=== PATIENT | male | born 1955 | race Caucasian/White ===

== ENCOUNTER 2019-07-16 07:17 | Outpatient (CLI) | payer OTHER ==
[2019-07-16 10:20] LABS: BASOPHILS % (AUTO) 0.7 %; EOSINOPHILS # (AUTO) 0.2 10^3/uL (0.0-0.7); EOSINOPHILS % (AUTO) 3.4 %; HGB - HEMOGLOBIN 15.9 g/dL (14.0-18.0); LYMPHOCYTES # (AUTO) 1.3 10^3/uL (1.5-3.5); LYMPHOCYTES % (AUTO) 22.7 %; MEAN CORPUSCULAR HGB CONC 32.4 g/dL (32.0-36.0); MEAN CORPUSCULAR VOLUME 86.4 fL (80.0-94.0); MEAN PLATELET VOLUME 10.3 fL (7.4-11.4); MONOCYTES # (AUTO) 0.5 10^3/uL (0.0-1.0); MONOCYTES % (AUTO) 8.2 %; NEUTROPHILS # (AUTO) 3.7 10^3/uL (1.5-6.6); PLT - PLATELET COUNT 238 10^3/uL (130-450); RED BLOOD COUNT 5.68 10^6/uL (4.70-6.10); RED CELL DISTRIBUTION WIDTH 14.1 % (12.0-15.0); WHITE BLOOD COUNT 5.9 x10^3/uL (4.8-10.8)
== END 2019-07-16 07:18 | disposition home or self-care (01) ==
LOC: LAB.S 07:17
PROVIDERS: ATTEND Naprapath
DX: Z13.29 Encounter for screening for other suspected endocrine disorder (principal); Z13.0 Encounter for screening for diseases of the blood and blood-forming organs and certain disorders involving the immune mechanism
CPT/HCPCS: 36415; 81599; 82672; 84402; 84403; 85025

== ENCOUNTER 2021-03-23 08:36 | Outpatient (CLI) | payer MEDICARE ==
[2021-03-23 15:05] LABS: BASOPHILS % (AUTO) 0.7 %; EOSINOPHILS # (AUTO) 0.2 10^3/uL (0.0-0.7); HCT - HEMATOCRIT 51.8 % (42.0-52.0); LYMPHOCYTES # (AUTO) 1.2 10^3/uL (1.5-3.5); LYMPHOCYTES % (AUTO) 20.5 %; MEAN CORPUSCULAR HEMOGLOBIN 28.4 pg (27.0-31.0); MEAN CORPUSCULAR HGB CONC 32.8 g/dL (32.0-36.0); MEAN CORPUSCULAR VOLUME 86.6 fL (80.0-94.0); MEAN PLATELET VOLUME 10.5 fL (7.4-11.4); MONOCYTES # (AUTO) 0.5 10^3/uL (0.0-1.0); MONOCYTES % (AUTO) 8.2 %; NEUTROPHILS # (AUTO) 3.8 10^3/uL (1.5-6.6); NEUTROPHILS % (AUTO) 65.6 %; PLT - PLATELET COUNT 264 10^3/uL (130-450); RED BLOOD COUNT 5.98 10^6/uL (4.70-6.10); RED CELL DISTRIBUTION WIDTH 13.3 % (12.0-15.0); WHITE BLOOD COUNT 5.7 x10^3/uL (4.8-10.8)
[2021-03-23 15:41] LABS: ALBUMIN 4.3 g/dL (3.2-5.5); ALBUMIN/GLOBULIN RATIO 1.5 (1.0-2.2); ALKALINE PHOSPHATASE 70 IU/L (42-121); ALT ALANINE AMINOTRANSFERASE 26 IU/L (10-60); AST ASPARTATE AMINOTRANSFERASE 24 IU/L (10-42); BILIRUBIN,TOTAL 1.1 mg/dL (0.2-1.0); BUN - BLOOD UREA NITROGEN 16 mg/dL (6-20); CALCIUM 9.4 mg/dL (8.5-10.3); CARBON DIOXIDE - CO2 29 mmol/L (21-32); CHLORIDE 101 mmol/L (101-111); CHOLESTEROL 246 mg/dL; GFR - MDRD 75 (>89); GLUCOSE 112 mg/dL (70-100); HDL CHOLESTEROL 41 mg/dL; LDL CHOLESTEROL,CALCULATED 174 mg/dL; LDL/HDL RATIO 4.2 (<3.6); POTASSIUM 3.5 mmol/L (3.5-5.0); SODIUM 138 mmol/L (135-145); TOTAL PROTEIN 7.2 g/dL (6.7-8.2); TRIGLYCERIDES 154 mg/dL; VLDL CHOLESTEROL 31 mg/dL
[2021-03-23 20:32] LABS: ESTIMATED AVERAGE GLUCOSE 123 mg/dL (70-100); HEMOGLOBIN A1c% 5.9 % (4.27-6.07)
== END 2021-03-23 08:37 | disposition home or self-care (01) ==
LOC: LAB.S 08:36
PROVIDERS: ATTEND Internal Medicine
DX: E78.2 Mixed hyperlipidemia (principal); Z12.5 Encounter for screening for malignant neoplasm of prostate; E88.81 Metabolic syndrome and other insulin resistance
CPT/HCPCS: 36415; 80053; 80061; 83036; 85025; G0103; 83721; 84153

== ENCOUNTER 2022-02-25 12:30 | Outpatient (CLI) | payer MEDICARE ==
--- NOTE | 2022-02-25 16:47 | XRAY Report ---
PROCEDURE: Hip w/Pelvis 2-3V RT INDICATIONS: PAIN IN RIGHT HIP TECHNIQUE: AP pelvis with lateral view(s) of the right hip(s). COMPARISON: None. FINDINGS: Bones: No fractures or dislocations. Pelvic ring appears intact. No suspicious bony lesions. Soft tissues: The visualized bowel gas pattern is normal. No suspicious soft tissue calcifications. IMPRESSION: No bony abnormality. Reviewed by: Marley Wu MD on 02/25/2022 4:45 PM PDT Approved by: Marley Wu MD on 02/25/2022 4:45 PM PDT Station ID: [id number]
--- NOTE | 2022-02-25 17:02 | XRAY Report ---
PROCEDURE: Shoulder 3 View LT INDICATIONS: TENDONITIS OF LEFT ROTATOR CUFF TECHNIQUE: 3 views of the shoulder were acquired. COMPARISON: None. FINDINGS: Bones: No fractures or dislocations. No suspicious bony lesions. Visualized ribs appear intact. Mo derate left glenohumeral joint osteoarthritis. Soft tissues: Calcification noted adjacent to lateral margin of the humeral head compatible with calc ific tendinitis or IMPRESSION: 1. Moderate left glenohumeral joint arthritis. 2. Left rotator cuff calcific tendinitis. Reviewed by: Yessenia Waggoner MD, PhD on 02/25/2022 5:01 PM PDT Approved by: Yessenia Waggoner MD, PhD on 02/25/2022 5:01 PM PDT Station ID: [id number]
== END 2022-02-25 12:31 | disposition home or self-care (01) ==
LOC: DI.S 12:30
PROVIDERS: ATTEND Internal Medicine
DX: M25.551 Pain in right hip (principal); M19.012 Primary osteoarthritis, left shoulder; M75.32 Calcific tendinitis of left shoulder

== ENCOUNTER 2023-09-04 16:15 | Outpatient (CLI) | payer MEDICARE ==
--- NOTE | 2023-09-05 13:30 | Ultrasound Report ---
PROCEDURE: Duplex Ext Veins Left INDICATIONS: ACUTE EMBOLISM AND THOMBOS UNSP DEEP VN UNSP LOWER TECHNIQUE: Real-time imaging, as well as color and pulse Doppler interrogation, were performed of the lower extr emity deep veins from the inguinal ligament to the popliteal fossa. Attempted visualization of the ca lf veins was performed. COMPARISON: None. FINDINGS: The deep veins are normally compressible, and free of intraluminal thrombus. Color and pu lse Doppler demonstrate normal phasic intraluminal flow. There is normal augmentation response to di stal compression maneuver. A Whitaker's cyst is present, measuring 2.5 x 1.0 x 3.0 cm. IMPRESSION: No deep venous thrombosis of the left lower extremity. Small Whitaker's cyst. Reviewed by: Dimas Moses MD on 09/05/2023 1:28 PM PDT Approved by: Dimas Moses MD on 09/05/2023 1:28 PM PDT Station ID: [id number]
== END 2023-09-04 16:16 | disposition home or self-care (01) ==
LOC: DI 16:15
PROVIDERS: ATTEND Internal Medicine
DX: I82.462 Acute embolism and thrombosis of left calf muscular vein (principal); M71.22 Synovial cyst of popliteal space [Baker], left knee